=== PATIENT | female | born 1960 | race Caucasian/White ===

== ENCOUNTER 2018-03-20 06:29 | Day surgery (SDC) | payer OTHER ==
[~2018-03-20] VITALS: Ht 157.5 cm; Wt 61.7 kg
[2018-03-20] VITALS (8 sets, daily range): BP systolic 122–148; BP diastolic 63–79
[2018-03-20] MEDS ORDERED: Lidocaine 1% MPF 10mg/ml 5ml ONE (07:00)
[2018-03-20] MEDS ORDERED: LR 1000ml ONE (07:00)
[2018-03-20] MEDS ORDERED: Propofol 200mg/20ml IV ONE (07:00)
[2018-03-20] MEDS ORDERED: SYNTHROID100 MCG ORAL (07:06)
[2018-03-20] MEDS ORDERED: METOPROLOL TART25 MG ORAL (07:06)
[2018-03-20] MEDS ORDERED: LOSARTAN POTASS25 MG ORAL (07:06)
--- NOTE | 2018-03-20 07:20 | Short Stay Surgery H&P ---
History of Present Illness History of Present Illness HPI Arlen Salamanca is a 58 year old female who was admitted on for Hx Of Polyps Patient History Allergies: Uncoded Allergies: NOVACAINE (Allergy, Severe, 03/20/18) ANAPHYLACTIC SHOCK Medication History Scheduled Levothyroxine Sodium* (Synthroid*), 100 MCG ORAL DAILY, (Reported) Losartan Potassium* (Losartan Potassium*), 25 MG ORAL DAILY, (Reported) Metoprolol Tartrate* (Metoprolol Tartrate*), 25 MG ORAL DA, (Reported) Medication History Narrative See typed updated H&P Physical Exam Vital Signs Last Vital Signs Date Time Temp Pulse Resp B/P (MAP) Pulse Ox O2 Delivery O2 Flow Rate FiO2 03/20/18 07:09 97.3 67 20 148/79 (102) 98 97.3 03/20/18 07:06 Room Air Plan Attestation Are the patient's medical conditions optimized for surgery? Harini Farias MD Mar 20, 2018 07:20
--- NOTE | 2018-03-20 07:20 | Pre-Procedure Note/Attestation ---
Pre-Procedure Note/Attestation Complete Prior to Procedure Planned Procedure: not applicable Procedure Narrative: colonoscopy Indications for Procedure Pre-Operative Diagnosis: h/o colon polyps Attestation I attest that I discussed the nature of the procedure; its benefits; risks and complications; and alternatives (and the risks and benefits of such alternatives ), prior to the procedure, with the patient (or the patient's legal real estate representative). I attest that, if there was a reasonable possibility of needing a blood transfusion, the patient (or the patient's legal real estate representative) was given the [facility] standardized written summary, pursuant to the [place] Blood Safety Act ([place] Health and Safety Code # 1645, as amended). I attest that I re-evaluated the patient just prior to the surgery and that there has been no change in the patient's H&P, except as documented below: Harini Farias MD Mar 20, 2018 07:20
[2018-03-20] MEDS ORDERED: LR 1000ml 1,000 ML IVLG SCH (07:42)
[2018-03-20] MEDS ORDERED: DiphenhydrAMINE 50mg/ml Inj IVP PRN (07:45)
[2018-03-20] MEDS ORDERED: Midazolam 2mg/2ml Inj IVP PRN (07:45)
[2018-03-20] MEDS ORDERED: Atropine Inj 1mg/10ml Syr IV PRN (07:45)
[2018-03-20] MEDS ORDERED: fentaNYL 100 mcg/2 mL IV PRN (07:45)
--- NOTE | 2018-03-20 07:54 | Anethesia Preoperative Eval ---
Anesthesia Pre-op PMH/ROS General Date of Evaluation: Mar 20, 2018 Time of Evaluation: 07:00 Anesthesiologist: cinda ASA Score: ASA 3 Mallampati Score Class I : Soft palate, uvula, fauces, pillars visible Class II: Soft palate, uvula, fauces visible Class III: Soft palate, base of uvula visible Class IV: Only hard plate visible Mallampati Classification: Class II Surgeon: fanny Diagnosis: hx/o colon polyps Surgical Procedure: colonoscopy Family History: no anesthesia problems Allergies: Uncoded Allergies: NOVACAINE (Allergy, Severe, 03/20/18) ANAPHYLACTIC SHOCK Medications: see eMAR Past Medical History Cardiovascular: Reports: HTN Endocrine: Reports: hypothyroidism Anesthesia Pre-op Phys. Exam Physician Exam Last Vital Signs Date Time Temp Pulse Resp B/P (MAP) Pulse Ox O2 Delivery O2 Flow Rate FiO2 03/20/18 07:09 97.3 67 20 148/79 (102) 98 97.3 03/20/18 07:06 Room Air Constitutional: NAD Neurologic: CN 2-12 intact Cardiovascular: RRR Respiratory: CTA Gastrointestinal: S/NT/ND Airway Exam Mallampati Score: Class II MO: full Neck: supple TMD: 2fb ROM: full Teeth: intact Anesthesia Pre-op A/P Risk Assessment & Plan Assessment: asa3 Plan: mac Status Change Before Surgery: No Pre-Antibiotics Drug: Allie Cramer MD Mar 20, 2018 07:54
--- NOTE | 2018-03-20 08:19 | Endoscopy Procedure Note ---
Endoscopy Procedure Note General Indication for Procedure: h/o polyp Procedures Performed: colonoscopy Operative Findings/Diagnosis: descendin polyp --> cold SN and Bx Specimen: yes Pt Tolerated Procedure Well: Yes Estimated Blood Loss: none Anesthesia Anesthesiologist: Mak Jimenez Anesthesia: MAC Medications Medication Given: see anesthesia record Inserted Devices Implant(s) used?: No Quality Was there any complications?: No GI Core Measures 50 yrs or older w/o bx or poly: Not Applicable 10yrs. F/U not recommended: Not Applicable If not recommended, why?: Harini Farias MD Mar 20, 2018 08:19
--- NOTE | 2018-03-20 08:20 | Brief Operative Note ---
Immediate Post Operative Note Operative Note Chief Complaint: h/o polyp Pre-op Diagnosis: h/o colon polyps Procedure: colon SN Bx Post-op Diagnosis: descendin polyp --> cold SN and Bx Surgeon: Dinora Anesthesiologist: Mak Jimenez Anesthesia: moderate sedation Specimen: yes Complications: none Condition: stable Fluids: recorded Estimated Blood Loss: none Drains: none Implant(s) used?: No Harini Farias MD Mar 20, 2018 08:20
--- NOTE | 2018-03-20 09:30 | Procedure Note ---
DATE OF PROCEDURE: 03/20/2018 GASTROENTEROLOGY PROCEDURE REPORT PROCEDURE: Colonoscopy with cold snare, polypectomy as well as biopsy. SURGEON: Harini Farias M.D. ANESTHESIA: Please see the separate anesthesiologist notes for details. PRE-ENDOSCOPIC DIAGNOSES: 1. History of colonic polyp. 2. Chronic constipation. POST-ENDOSCOPIC DIAGNOSES: 1. Normal terminal ileum to 5 cm. 2. A 4 mm polyp seen in the distal descending colon, status post snare polypectomy and biopsy for complete removal. DESCRIPTION OF PROCEDURE: The procedure, its risks, indications, alternatives, and possible complications including, but not limited to bleeding, infection, perforation, , and anesthesia complications were explained to the patient and informed consent was obtained. The patient was then sedated in the left lateral decubitus position. A rectal exam was done. The colonoscope was introduced into the rectum and advanced to 5 cm into the terminal ileum without difficulty. The colonoscope was then gradually withdrawn and the mucosa examined carefully. Examination of the colonic mucosa revealed a 4 mm polyp in the distal descending colon, which was first removed with the cold biopsy forceps and then base was cleared of any residual polyp with a biopsy forceps. The retroflex view of the rectum was unremarkable. The remaining colonoscopic examination was without any other findings. The colonoscope was removed. The patient was sent to recovery in good condition. COMPLICATIONS: None. RECOMMENDATIONS: 1. Follow up biopsy results. 2. Outpatient followup. 3. Continue MiraLAX indefinitely since that has been working for the patient's chronic constipation. 4. Repeat colonoscopy in five years. Harini Farias M.D. DR: YOVANY JOB#: [id number] CC:
--- NOTE | 2018-03-20 09:36 | Immediate Post-Op Evaluation ---
Immediate Post-Op Evalulation Immediate Post-Op Evalulation Procedure: colonoscopy w/bx Date of Evaluation: Mar 20, 2018 Time of Evaluation: 08:23 IV Fluids: 650ml lr Blood Products: none Estimated Blood Loss: negligible Blood Pressure Systolic: 122 Blood Pressure Diastolic: 63 Pulse Rate: 68 Respiratory Rate: 18 O2 Sat by Pulse Oximetry: 99 Temperature (Fahrenheit): 98.2 Pain Score (1-10): 0 Nausea: No Vomiting: No Complications none Patient Status: awake, reacts, patent Hydration Status: adequate Drug: Allie Cramer MD Mar 20, 2018 09:36
--- NOTE | 2018-03-20 09:41 | 48 Hour Post Anesthesia Eval ---
Post Anesthesia Evaluation Procedure: colonoscopy w/bx Date of Evaluation: Mar 20, 2018 Time of Evaluation: 08:25 Blood Pressure Systolic: 128 0: 68 Pulse Rate: 64 Respiratory Rate: 18 Temperature (Fahrenheit): 97.2 O2 Sat by Pulse Oximetry: 99 Airway: patent Nausea: No Vomiting: No Pain Intensity: 0 Hydration Status: adequate Cardiopulmonary Status: stable Mental Status/LOC: patient returned to baseline Post-Anesthesia Complications: none Follow-up care needed: N/A Allie Joiner MD Mar 20, 2018 09:41
== END 2018-03-20 09:25 | disposition home or self-care (01) ==
LOC: GAS 06:29
DX: D12.4 Benign neoplasm of descending colon (principal); K59.00 Constipation, unspecified; Z86.010 Personal history of colon polyps; E03.9 Hypothyroidism, unspecified; I44.7 Left bundle-branch block, unspecified; I10 Essential (primary) hypertension; Z88.4 Allergy status to anesthetic agent
CPT/HCPCS: 45385; J2704; 94003; 94150